=== PATIENT | female | born 1955 | race Caucasian/White ===

== ENCOUNTER 2020-03-16 12:50 | Emergency (ER) | payer MEDICARE, OTHER ==
[~2020-03-16] VITALS: Ht 172.7 cm; Wt 54.4 kg
[2020-03-16 12:56] VITALS: BP_SYST 136
--- NOTE | 2020-03-16 12:56 | NUR ---
Patient to ER bed 02 to gown for evaluation. Side rails up.
--- NOTE | 2020-03-16 13:20 | NUR ---
ER at bedside examining patient.
--- NOTE | 2020-03-16 13:30 | NUR ---
Pt came to ER for nausea vomiting x5 days, also complains of chronic back pain. Pt resting in [facility], compliant
[2020-03-16] MEDS: MORPHINE 4 MG/ML INJ. SYRINGE IVP ONE (13:54)
[2020-03-16] MEDS: ONDANSETRON HCL 4 MG/2 ML VIAL IVP ONE (13:55)
--- NOTE | 2020-03-16 14:20 | NUR ---
Spoke with pt to give update on status. waiting outside available for information.
[2020-03-16 15:02] LABS: BASOPHILS % (AUTO) 0.4 % (0.0-2.0); EOSINOPHILS % (AUTO) 0.3 % (0.0-4.0); HEMATOCRIT 44.9 % (36-48); HEMOGLOBIN 15.4 g/dL (12.0-16.0); LYMPHOCYTES # (AUTO) 1.3 K/uL (1.0-5.5); LYMPHOCYTES % (AUTO) 22.7 % (20.5-51.5); MEAN CORPUSCULAR HEMOGLOBIN 33 pg (27-31); MEAN CORPUSCULAR HGB CONC 34 % (32-36); MEAN CORPUSCULAR VOLUME 97 fL (79.0-98.0); MONOCYTES # (AUTO) 0.5 K/uL (0.0-1.0); MONOCYTES % (AUTO) 8.9 % (1.7-9.3); NEUTROPHILS % (AUTO) 67.7 % (40.0-70.0); PLATELET COUNT (AUTO) 357 K/uL (130-430); RED BLOOD CELL COUNT(AUTO) 4.63 MIL/uL (4.2-6.2); RED CELL DISTRIBUTION WIDTH 13.3 % (9.0-15.0); WHITE BLOOD COUNT (AUTO) 5.9 K/uL (4.8-10.8)
--- NOTE | 2020-03-16 15:15 | NUR ---
Pt asleep in [facility] at this time, VSS
[2020-03-16 15:16] LABS: ANION GAP 10 (5-15); CALCIUM 8.6 mg/dL (8.4-11.0); CHLORIDE 89 mmol/L (98-107); CREATININE 0.57 mg/dL (0.55-1.30); GLUCOSE 112 mg/dL (70-99); POTASSIUM 3.1 mmol/L (3.5-5.1); SODIUM SERUM 123 mmol/L (136-145); UREA NITROGEN, BLOOD 23 mg/dL (8-21)
[2020-03-16 15:23] LABS: ALANINE AMINOTRANSFERASE 19 U/L (12-78); TOTAL BILIRUBIN 1.4 mg/dL (0.0-1.0)
[2020-03-16 15:32] LABS: GFR AFRICAN AMERICAN 136 mL/min (>90)
[2020-03-16 15:52] VITALS: BP_SYST 140
--- NOTE | 2020-03-16 15:53 | NUR ---
Patient given written and verbal discharge instructions and verbalizes understanding. ER MD discussed with patient the results and treatment provided. Patient in stable condition. ID arm band removed. IV catheter removed intact and dressing applied, no active bleeding. Rx of [place] given. Patient educated on pain management and to follow up with PMD. Pain Scale 0/10. Opportunity for questions provided and answered. Medication side effect fact sheet provided.
[2020-03-16 16:30] LABS: ALBUMIN 4.2 g/dL (3.4-4.8)
[2020-03-16 16:53] LABS: ASPARTATE AMINOTRANSFERASE < 5 U/L (10-37)
== END 2020-03-16 15:53 | disposition home or self-care (01) ==
LOC: SED 12:50
DX: M54.9 Dorsalgia, unspecified (principal); R10.84 Generalized abdominal pain; R42 Dizziness and giddiness
CPT/HCPCS: 36415; 70450; 71045; 80053; 82550; 84484; 85025; 93005; 96374; 96375; 99285; J2270; J2405

== ENCOUNTER 2020-08-19 11:36 | Emergency (ER) | payer MEDICARE ==
[~2020-08-19] VITALS: Ht 162.6 cm; Wt 67.1 kg
[2020-08-19 11:38] VITALS: BP_SYST 167
[2020-08-19] MEDS ORDERED: LORazepam 2 MG/ML VIAL ONE (11:45)
[2020-08-19] MEDS ORDERED: NACL 0.9% 1,000 ML IV ONE (12:00)
[2020-08-19 12:08] LABS: BASOPHILS % (AUTO) 0.8 % (0.0-2.0); EOSINOPHILS # (AUTO) 0.2 K/uL (0.0-0.4); HEMATOCRIT 38.3 % (36-48); HEMOGLOBIN 13.4 g/dL (12.0-16.0); MEAN CORPUSCULAR HEMOGLOBIN 36 pg (27-31); MEAN CORPUSCULAR HGB CONC 35 % (32-36); MEAN CORPUSCULAR VOLUME 103 fL (79.0-98.0); MONOCYTES # (AUTO) 0.3 K/uL (0.0-1.0); MONOCYTES % (AUTO) 5.2 % (1.7-9.3); NEUTROPHILS # (AUTO) 4.5 K/uL (1.8-7.7); PLATELET COUNT (AUTO) 233 K/uL (130-430); RED BLOOD CELL COUNT(AUTO) 3.72 MIL/uL (4.2-6.2)
[2020-08-19] MEDS ORDERED: LORazepam 2 MG/ML VIAL IVP ONE (12:15)
[2020-08-19 12:20] LABS: ANION GAP 10 (5-15); CALCIUM 8.4 mg/dL (8.4-11.0); CHLORIDE 94 mmol/L (98-107); CREATININE 0.71 mg/dL (0.55-1.30); GLUCOSE 147 mg/dL (70-99); POTASSIUM 3.9 mmol/L (3.5-5.1); SODIUM SERUM 131 mmol/L (136-145); UREA NITROGEN, BLOOD 7 mg/dL (8-21)
[2020-08-19 12:24] LABS: GFR AFRICAN AMERICAN 106 mL/min (>90)
[2020-08-19 12:26] LABS: ALANINE AMINOTRANSFERASE 25 U/L (12-78); ALBUMIN 4.1 g/dL (3.4-4.8); ASPARTATE AMINOTRANSFERASE 18 U/L (10-37); TOTAL BILIRUBIN 0.7 mg/dL (0.0-1.0)
[2020-08-19 12:27] LABS: ACETAMINOPHEN < 1 ug/mL (1-30); ALCOHOL, BLOOD < 3 mg/dL (<10)
[2020-08-19 12:33] LABS: BARBITURATE, URINE NEGATIVE (NEG <=200); BENZODIAZEPINE, URINE NEGATIVE (NEG <=150); CANNABINOID, URINE NEGATIVE (NEG <=50); COCAINE, URINE NEGATIVE (NEG <=150); METHAMPHETAMINES SCREEN,URINE NEGATIVE (NEG <=500); OPIATE, URINE NEGATIVE (NEG <=100); PHENCYCLIDINE SCREEN,URINE NEGATIVE (NEG <=25); UR TRICYCLIC ANTIDEPRESSANTS NEGATIVE (NEG <=300); URINE AMPHETAMINE NEGATIVE (NEG <=500); URINE METHADONE NEGATIVE (NEG <=200); URINE OXYCODONE SCREEN NEGATIVE (NEG <=100); URINE PROPOXYPHENE SCREEN NEGATIVE (NEG <=300)
[2020-08-19 16:24] VITALS: BP_SYST 167
== END 2020-08-19 16:25 | disposition other institution (70) ==
LOC: SED 11:36
DX: T40.421A Poisoning by tramadol, accidental (unintentional), initial encounter (principal); R56.9 Unspecified convulsions; Z20.822 Contact with and (suspected) exposure to COVID-19; Y92.89 Other specified places as the place of occurrence of the external cause
CPT/HCPCS: 36415; 70450; 76376; 80053; 80307; 83930; 85025; 87426; 93005; 96361; 96374; 99285; G0480; G0481; G0482; J2060; J7030

== ENCOUNTER 2021-08-10 18:29 | Inpatient (IN) | payer MEDICARE, SELFPAY ==
[~2021-08-10] VITALS: Ht 195.6 cm; Wt 70.9 kg
[2021-08-10 18:30] VITALS: BP_SYST 137
[2021-08-10] MEDS ORDERED: levETIRAcetam 2,000 MG in NS 85 ML IV ONE (18:45)
[2021-08-10] MEDS ORDERED: NACL 0.9% 1,000 ML IV ONE (18:45)
[2021-08-10 18:59] LABS: PLATELET COUNT (AUTO) 280 K/uL (130-430)
[2021-08-10 19:04] LABS: BASOPHILS % (AUTO) 0.2 % (0.0-2.0); EOSINOPHILS % (AUTO) 0.2 % (0.0-4.0); HEMATOCRIT 41.4 % (36-48); HEMOGLOBIN 14.3 g/dL (12.0-16.0); LYMPHOCYTES # (AUTO) 0.5 K/uL (1.0-5.5); LYMPHOCYTES % (AUTO) 5.9 % (20.5-51.5); MEAN CORPUSCULAR HEMOGLOBIN 36 pg (27-31); MEAN CORPUSCULAR HGB CONC 35 % (32-36); MEAN CORPUSCULAR VOLUME 104 fL (79.0-98.0); MONOCYTES # (AUTO) 0.4 K/uL (0.0-1.0); MONOCYTES % (AUTO) 4.4 % (1.7-9.3); NEUTROPHILS # (AUTO) 7.2 K/uL (1.8-7.7); NEUTROPHILS % (AUTO) 89.3 % (40.0-70.0); RED BLOOD CELL COUNT(AUTO) 3.98 MIL/uL (4.2-6.2); RED CELL DISTRIBUTION WIDTH 13.3 % (9.0-15.0); WHITE BLOOD COUNT (AUTO) 8.1 K/uL (4.8-10.8)
[2021-08-10 19:06] LABS: ANION GAP 15 (5-15); CALCIUM 9.3 mg/dL (8.4-11.0); CHLORIDE 90 mmol/L (98-107); CREATININE 0.71 mg/dL (0.55-1.30); GLUCOSE 186 mg/dL (70-99); SODIUM SERUM 128 mmol/L (136-145); UREA NITROGEN, BLOOD 13 mg/dL (8-21)
[2021-08-10 19:18] LABS: GFR AFRICAN AMERICAN 106 mL/min (>90); POTASSIUM 2.9 mmol/L (3.5-5.1)
[2021-08-10 19:21] LABS: TOTAL BILIRUBIN 0.4 mg/dL (0.0-1.0)
[2021-08-10 19:22] LABS: ALANINE AMINOTRANSFERASE 36 U/L (12-78); ALBUMIN 4.3 g/dL (3.4-4.8); ALCOHOL, BLOOD < 3 mg/dL (<10); ASPARTATE AMINOTRANSFERASE 34 U/L (10-37)
[2021-08-10] MEDS ORDERED: LORazepam 2 MG/ML VIAL ONE (19:24)
[2021-08-10] MEDS ORDERED: LORazepam 2 MG/ML VIAL IVP ONE (19:30)
[2021-08-10] MEDS: KCL 10 mEq in D5/0.45NS 1000mL 1,000 ML IV SCH (21:03)
[2021-08-11] VITALS (13 sets, daily range): BP systolic 128–169
[2021-08-11] MEDS ORDERED: NACL 0.9% 1,000 ML IV ONE (03:30)
[2021-08-11] MEDS ORDERED: AZITHROMYCIN 500 MG in NS 250 ML IV ONE (03:30)
[2021-08-11] MEDS ORDERED: cefTRIAXone 1 GM in D5W 50 ML IV ONE (03:30)
[2021-08-11] MEDS ORDERED: cefTRIAXone 1 GM VIAL ONE (03:34)
[2021-08-11 04:02] LABS: BILIRUBIN,URINE NEGATIVE (NEGATIVE); CLARITY/URINE CLEAR (CLEAR); COLOR,URINE YELLOW (YELLOW); GLUCOSE,URINE NEGATIVE (NEGATIVE); KETONES,URINE NEGATIVE (NEGATIVE); LEUKOCYTE ESTERASE ,URINE NEGATIVE (NEGATIVE); NITRITE, URINE NEGATIVE (NEGATIVE); PROTEIN URINE NEGATIVE (NEGATIVE); UROBILINOGEN,URINE 0.2 (0.2-1.0)
[2021-08-11 04:03] LABS: BLOOD, URINE TRACE (NEGATIVE)
[2021-08-11 04:13] LABS: BARBITURATE, URINE NEGATIVE (NEG <=200); BENZODIAZEPINE, URINE POSITIVE (NEG <=150); CANNABINOID, URINE NEGATIVE (NEG <=50); COCAINE, URINE NEGATIVE (NEG <=150); METHAMPHETAMINES SCREEN,URINE NEGATIVE (NEG <=500); OPIATE, URINE NEGATIVE (NEG <=100); PHENCYCLIDINE SCREEN,URINE NEGATIVE (NEG <=25); UR TRICYCLIC ANTIDEPRESSANTS POSITIVE (NEG <=300); URINE AMPHETAMINE NEGATIVE (NEG <=500); URINE METHADONE NEGATIVE (NEG <=200); URINE OXYCODONE SCREEN NEGATIVE (NEG <=100); URINE PROPOXYPHENE SCREEN NEGATIVE (NEG <=300)
[2021-08-11] MEDS ORDERED: D5/0.45 NS 1,000 ML IV SCH (04:45)
[2021-08-11] MEDS ORDERED: LORazepam 2 MG/ML VIAL IVP PRN (04:45)
[2021-08-11] MEDS ORDERED: AZITHROMYCIN 500 MG/VIAL (ZITHROMAX) IV ONE (04:46)
[2021-08-11] MEDS ORDERED: LEVE250T2 PO (05:00)
[2021-08-11] MEDS ORDERED: TRAZ-250 PO (05:00)
[2021-08-11] MEDS ORDERED: ATEN50TA PO (05:00)
[2021-08-11] MEDS ORDERED: TRAM50TA PO (05:00)
[2021-08-11] MEDS ORDERED: CEL20 PO (05:00)
[2021-08-11 05:04] LABS: BACTERIA,URINE FEW /HPF (None Seen); MUCUS,URINE 1+ /LPF (None Seen); WBC,URINE 0-3 /HPF (0-3)
[2021-08-11] MEDS: KCL 10 mEq in D5/0.45NS 1000mL 1,000 ML IV SCH (06:15)
[2021-08-11] MEDS: levETIRAcetam 500 MG IV PREMIX 100 ML IV SCH ×2 (08:51→21:04)
[2021-08-11 09:23] LABS: CALCIUM 8.2 mg/dL (8.4-11.0); CREATININE 0.46 mg/dL (0.55-1.30)
[2021-08-11 09:26] LABS: POTASSIUM 2.9 mmol/L (3.5-5.1)
[2021-08-11] MEDS ORDERED: KCL 40 mEq in 100 mL (PREMIX) 100 ML IV ONE (09:45)
[2021-08-11] MEDS ORDERED: ATENOLOL 50 MG TABLET (TENORMIN) PO ONE (10:00)
[2021-08-11] MEDS: cefTRIAXone 1 GM IVPB PREMIX 50 ML IV SCH (10:39)
[2021-08-11] MEDS: AZITHROMYCIN 500 MG in NS 250 ML IV SCH (10:58)
[2021-08-11] MEDS: POTASSIUM CHLORIDE 20 mEq in 100 mL (PREMIX) 100 ML x 2 doses IV SCH ×2 (10:58→13:07)
[2021-08-11] MEDS: KCL 20 mEq in D5NS 1000 mL 1,000 ML IV SCH (15:15)
[2021-08-11] MEDS ORDERED: KETOROLAC TROMETHAMINE 15 MG VIAL ONE (18:00)
[2021-08-11] MEDS ORDERED: hydrALAZINE HCL 20 MG/ML VIAL IVP PRN (18:00)
[2021-08-11] MEDS: KETOROLAC TROMETHAMINE 15 MG VIAL IVP PRN (18:24)
[2021-08-11] MEDS: ENOXAPARIN SODIUM 40 MG/0.4 ML SYRINGE SUBCUT SCH (21:14)
[2021-08-12] VITALS (16 sets, daily range): BP systolic 132–165
[2021-08-12] MEDS: KCL 20 mEq in D5NS 1000 mL 1,000 ML IV SCH ×3 (05:47→20:00)
[2021-08-12 06:35] LABS: CALCIUM 8.3 mg/dL (8.4-11.0); CREATININE 0.53 mg/dL (0.55-1.30)
[2021-08-12 06:40] LABS: BASOPHILS % (AUTO) 0.2 % (0.0-2.0); EOSINOPHILS # (AUTO) 0.1 K/uL (0.0-0.4); EOSINOPHILS % (AUTO) 1.5 % (0.0-4.0); HEMATOCRIT 37.2 % (36-48); HEMOGLOBIN 12.8 g/dL (12.0-16.0); LYMPHOCYTES # (AUTO) 0.8 K/uL (1.0-5.5); LYMPHOCYTES % (AUTO) 15.4 % (20.5-51.5); MEAN CORPUSCULAR HEMOGLOBIN 36 pg (27-31); MEAN CORPUSCULAR HGB CONC 34 % (32-36); MEAN CORPUSCULAR VOLUME 104 fL (79.0-98.0); MONOCYTES # (AUTO) 0.2 K/uL (0.0-1.0); MONOCYTES % (AUTO) 4.8 % (1.7-9.3); NEUTROPHILS # (AUTO) 3.9 K/uL (1.8-7.7); NEUTROPHILS % (AUTO) 78.1 % (40.0-70.0); PLATELET COUNT (AUTO) 203 K/uL (130-430); RED BLOOD CELL COUNT(AUTO) 3.58 MIL/uL (4.2-6.2); RED CELL DISTRIBUTION WIDTH 12.8 % (9.0-15.0)
[2021-08-12] MEDS: KETOROLAC TROMETHAMINE 15 MG VIAL IVP PRN ×3 (08:36→20:58)
[2021-08-12] MEDS: levETIRAcetam 500 MG IV PREMIX 100 ML IV SCH ×2 (09:55→20:54)
[2021-08-12] MEDS: cefTRIAXone 1 GM IVPB PREMIX 50 ML IV SCH (09:56)
[2021-08-12] MEDS: ATENOLOL 50 MG TABLET (TENORMIN) PO SCH (09:56)
[2021-08-12] MEDS: AZITHROMYCIN 500 MG in NS 250 ML IV SCH (11:13)
[2021-08-12] MEDS ORDERED: POTASSIUM CHLORIDE 20 MEQ TAB.PRT.SR PO ONE ×2 (11:30→15:30)
[2021-08-12] MEDS ORDERED: POTASSIUM CHLORIDE 8 MEQ TABLET.SA PO ONE (15:15)
[2021-08-12] MEDS: ENOXAPARIN SODIUM 40 MG/0.4 ML SYRINGE SUBCUT SCH (20:57)
[2021-08-13] VITALS (17 sets, daily range): BP systolic 141–177
[2021-08-13] MEDS: KETOROLAC TROMETHAMINE 15 MG VIAL IVP PRN ×2 (02:35→08:09)
[2021-08-13 06:55] LABS: CALCIUM 8.7 mg/dL (8.4-11.0); CREATININE 0.46 mg/dL (0.55-1.30); PHOSPHORUS 2.3 mg/dL (2.7-4.5); POTASSIUM 3.9 mmol/L (3.5-5.1)
[2021-08-13] MEDS: KCL 20 mEq in D5NS 1000 mL 1,000 ML IV SCH (08:06)
[2021-08-13] MEDS: cefTRIAXone 1 GM IVPB PREMIX 50 ML IV SCH (08:07)
[2021-08-13] MEDS: ATENOLOL 50 MG TABLET (TENORMIN) PO SCH (08:08)
[2021-08-13] MEDS: levETIRAcetam 500 MG IV PREMIX 100 ML IV SCH (08:08)
[2021-08-13] MEDS: AZITHROMYCIN 500 MG in NS 250 ML IV SCH (10:03)
[2021-08-13] MEDS ORDERED: DIVALPROEX SODIUM 500 MG TABLET( DEPAKOTE) PO ONE (12:00)
[2021-08-13] MEDS ORDERED: MAGNESIUM SULFATE 4 GM in D5W 250 ML IV ONE (14:30)
[2021-08-13] MEDS ORDERED: DIVA500T4 PO (16:58)
[2021-08-13] MEDS ORDERED: DIVA-74 PO (17:00)
[2021-08-13] MEDS ORDERED: DIVALPROEX SODIUM 500 MG TABLET( DEPAKOTE) PO SCH (21:00)
== END 2021-08-13 17:40 | disposition home or self-care (01) | DRG 100 ==
LOC: SED 18:29 → SIC 08-11 04:41
PROVIDERS: ADMIT Family Medicine; ATTEND Family Medicine
DX: G40.901 Epilepsy, unspecified, not intractable, with status epilepticus (principal); J18.9 Pneumonia, unspecified organism; G93.41 Metabolic encephalopathy; E87.1 Hypo-osmolality and hyponatremia; F32.A Depression, unspecified; Z20.822 Contact with and (suspected) exposure to COVID-19; E87.6 Hypokalemia; G89.29 Other chronic pain; M54.9 Dorsalgia, unspecified; I10 Essential (primary) hypertension; Z79.899 Other long term (current) drug therapy; Z88.8 Allergy status to other drugs, medicaments and biological substances
CPT/HCPCS: 36415; 70450-TC; 71045; 76376; 80048; 80053; 80307; 81000; 82542; 83605; 83735; 84100; 84484; 85025; 87040; 87081; 96361; 96374; 96375; 99285; G0482; J0456; J0696; J1650; J1885; J1953; J2060; J3475; J3480; J7050; J7060

== ENCOUNTER 2021-11-07 17:00 | Emergency (ER) | payer MEDICARE ==
[~2021-11-07] VITALS: Ht 170.2 cm; Wt 63.5 kg
[~2021-11-07 17:00] MED LIST: ATEN50TA PO; CEFAZOLIN 2 GM IVPB PREMIX 50 ML IV ONE; CEL20 PO; DESFLURANE 15 MIN GAS INH ONE; DEXAMETHASONE SOD PHOSPHATE 4 MG/ML VIAL ONE; DIVA-74 PO; HYDROmorphone 2 MG/ML VIAL ONE; KETOROLAC TROMETHAMINE 30 MG VIAL ONE; LR 1,000 ML IV.SOLN IV ONE; NS IRRIG SOLN 1000 ML IR ONE; ONDANSETRON HCL 4 MG/2 ML VIAL ONE; PHENYLEPHRINE HCL 10 MG/ML VIAL (NEOSYNEPHRINE) ONE; PROPOFOL 200MG/ 20ML VIAL (DIPRIVAN) IV ONE; TRAM50TA PO; TRAZ-250 PO; fentaNYL CITRATE/PF 100 MCG/2 ML AMP ONE
[2021-11-07] MEDS ORDERED: LORazepam 2 MG/ML VIAL ONE (17:19)
[2021-11-07 17:34] LABS: BASOPHILS # (AUTO) 0.2 K/uL (0.0-0.2); BASOPHILS % (AUTO) 2.8 % (0.0-2.0); EOSINOPHILS # (AUTO) 0.1 K/uL (0.0-0.4); EOSINOPHILS % (AUTO) 1.1 % (0.0-4.0); HEMATOCRIT 36.7 % (36-48); HEMOGLOBIN 12.6 g/dL (12.0-16.0); LYMPHOCYTES # (AUTO) 0.3 K/uL (1.0-5.5); LYMPHOCYTES % (AUTO) 5.6 % (20.5-51.5); MEAN CORPUSCULAR HEMOGLOBIN 39 pg (27-31); MEAN CORPUSCULAR HGB CONC 34 % (32-36); MEAN CORPUSCULAR VOLUME 113 fL (79.0-98.0); MONOCYTES # (AUTO) 0.1 K/uL (0.0-1.0); MONOCYTES % (AUTO) 2.1 % (1.7-9.3); NEUTROPHILS # (AUTO) 4.7 K/uL (1.8-7.7); NEUTROPHILS % (AUTO) 88.4 % (40.0-70.0); PLATELET COUNT (AUTO) 299 K/uL (130-430); RED BLOOD CELL COUNT(AUTO) 3.26 MIL/uL (4.2-6.2); WHITE BLOOD COUNT (AUTO) 5.4 K/uL (4.8-10.8)
[2021-11-07] MEDS ORDERED: HYDROcodone/ACETAMIN 5-325 MG TAB (NORCO/ VICODIN) PO ONE (18:00)
[2021-11-07] MEDS ORDERED: LORazepam 2 MG/ML VIAL IM ONE (18:00)
[2021-11-07] MEDS ORDERED: DIVALPROEX SODIUM 250 MG TABLET(DEPAKOTE) PO ONE (18:00)
[2021-11-07 18:01] LABS: ANION GAP 11 (5-15); CHLORIDE 91 mmol/L (98-107); CREATININE 0.83 mg/dL (0.55-1.30); GLUCOSE 128 mg/dL (70-99); POTASSIUM 4.4 mmol/L (3.5-5.1); SODIUM SERUM 129 mmol/L (136-145); UREA NITROGEN, BLOOD 14 mg/dL (8-21)
[2021-11-07 18:05] LABS: GFR AFRICAN AMERICAN 88 mL/min (>90)
[2021-11-07 18:07] LABS: ALANINE AMINOTRANSFERASE 20 U/L (12-78); ASPARTATE AMINOTRANSFERASE 19 U/L (10-37); TOTAL BILIRUBIN 0.5 mg/dL (0.0-1.0)
[2021-11-07 18:25] LABS: CARBAMAZEPINE (TEGRETOL) < 0 ug/mL (4-12)
[2021-11-07 19:07] VITALS: BP_SYST 125
== END 2021-11-07 19:07 | disposition home or self-care (01) ==
LOC: SED 17:00
DX: R56.9 Unspecified convulsions (principal); Z88.8 Allergy status to other drugs, medicaments and biological substances; Z79.899 Other long term (current) drug therapy
CPT/HCPCS: 36415; 80053; 80156; 83605; 85025; 96372; 99283; J0690; J1100; J1170; J1885; J2060; J2370; J2405; J2704; J3010; J7120

== ENCOUNTER 2023-08-01 10:38 | Inpatient (IN) | payer MEDICARE ==
[~2023-08-01] VITALS: Ht 167.6 cm; Wt 58.7 kg
[2023-08-01] VITALS (11 sets, daily range): BP systolic 72–157; PULSE 68–98; RESP 16–33; TEMP 97.7–98.6; O2SAT 94–99
[~2023-08-01 10:38] MED LIST changes: -CEFAZOLIN 2 GM IVPB PREMIX 50 ML IV ONE; -DESFLURANE 15 MIN GAS INH ONE; -DEXAMETHASONE SOD PHOSPHATE 4 MG/ML VIAL ONE; -HYDROmorphone 2 MG/ML VIAL ONE; -KETOROLAC TROMETHAMINE 30 MG VIAL ONE; -LR 1,000 ML IV.SOLN IV ONE; -NS IRRIG SOLN 1000 ML IR ONE; -ONDANSETRON HCL 4 MG/2 ML VIAL ONE; -PHENYLEPHRINE HCL 10 MG/ML VIAL (NEOSYNEPHRINE) ONE; -PROPOFOL 200MG/ 20ML VIAL (DIPRIVAN) IV ONE; -fentaNYL CITRATE/PF 100 MCG/2 ML AMP ONE
[2023-08-01 11:40] LABS: EOSINOPHILS % (AUTO) 0.1 % (0.0-4.0); HEMATOCRIT 27.6 % (36-48); HEMOGLOBIN 8.7 g/dL (12.0-16.0); LYMPHOCYTES # (AUTO) 0.5 K/uL (1.0-5.5); LYMPHOCYTES % (AUTO) 4.8 % (20.5-51.5); MEAN CORPUSCULAR HEMOGLOBIN 26 pg (27-31); MEAN CORPUSCULAR HGB CONC 31 % (32-36); MEAN CORPUSCULAR VOLUME 82 fL (79.0-98.0); MONOCYTES # (AUTO) 1.2 K/uL (0.0-1.0); MONOCYTES % (AUTO) 10.3 % (1.7-9.3); NEUTROPHILS # (AUTO) 9.5 K/uL (1.8-7.7); NEUTROPHILS % (AUTO) 84.8 % (40.0-70.0); PLATELET COUNT (AUTO) 396 K/uL (130-430); RED BLOOD CELL COUNT(AUTO) 3.39 MIL/uL (4.2-6.2); WHITE BLOOD COUNT (AUTO) 11.2 K/uL (4.8-10.8)
[2023-08-01 11:46] LABS: ANION GAP 25 (5-15); CARBON DIOXIDE 22 mmol/L (23-29); CHLORIDE 99 mmol/L (98-107); CREATININE 3.36 mg/dL (0.55-1.30); GFR AFRICAN AMERICAN 17 mL/min (>90); GFR NON AFRICAN-AMERICAN 14 mL/min (>90); GLUCOSE 116 mg/dL (74-106); SODIUM SERUM 146 mmol/L (136-145); UREA NITROGEN, BLOOD 44 mg/dL (8-21)
[2023-08-01] MEDS: NACL 0.9% 1,000 ML IV ONE ×3 (11:46→17:57)
[2023-08-01 11:58] LABS: ALANINE AMINOTRANSFERASE 21 U/L (12-78); ALBUMIN 2.8 g/dL (3.4-4.8); ASPARTATE AMINOTRANSFERASE 16 U/L (10-37); BILIRUBIN,DIRECT 0.1 mg/dL (0.0-0.3); SALICYLATE 2 mg/dL (3-30); TOTAL BILIRUBIN 0.3 mg/dL (0.0-1.0); TOTAL PROTEIN, SERUM 6.4 g/dL (6.4-8.3)
[2023-08-01 11:59] LABS: ACETAMINOPHEN < 1 ug/mL (1-30); ALCOHOL, BLOOD < 3 mg/dL (<10); VALPROIC ACID < 3 ug/mL (50-100)
[2023-08-01 12:29] LABS: ABG O2 SAT% ESTIMATE 95.5 % (94.0-100.0); BLOOD GAS BASE EXCESS -2.9 mmol/L (-3.0-3.0); BLOOD GAS HCO3 21.2 mmol/L (21.0-27.0); BLOOD GAS PCO2 35.2 mmHg (35.0-45.0); BLOOD GAS PH 7.398 (7.350-7.450); BLOOD GAS PO2 76.9 mmHg (75.0-100.0)
[2023-08-01 12:33] LABS: ALLEN'S TEST POSITIVE (P)
[2023-08-01 12:42] LABS: BILIRUBIN,URINE NEGATIVE (NEGATIVE); BLOOD, URINE NEGATIVE (NEGATIVE); CLARITY/URINE CLEAR (CLEAR); COLOR,URINE YELLOW (YELLOW); GLUCOSE,URINE NEGATIVE (NEGATIVE); KETONES,URINE NEGATIVE (NEGATIVE); LEUKOCYTE ESTERASE ,URINE NEGATIVE (NEGATIVE); NITRITE, URINE NEGATIVE (NEGATIVE); PROTEIN URINE TRACE (NEGATIVE); UROBILINOGEN,URINE 0.2 (0.2-1.0)
[2023-08-01 13:00] LABS: BARBITURATE, URINE NEGATIVE (NEG <=200); BENZODIAZEPINE, URINE NEGATIVE (NEG <=150); CANNABINOID, URINE NEGATIVE (NEG <=50); COCAINE, URINE NEGATIVE (NEG <=150); METHAMPHETAMINES SCREEN,URINE NEGATIVE (NEG <=500); OPIATE, URINE NEGATIVE (NEG <=100); PHENCYCLIDINE SCREEN,URINE NEGATIVE (NEG <=25); UR TRICYCLIC ANTIDEPRESSANTS NEGATIVE (NEG <=300); URINE AMPHETAMINE NEGATIVE (NEG <=500); URINE METHADONE NEGATIVE (NEG <=200); URINE OXYCODONE SCREEN NEGATIVE (NEG <=100)
[2023-08-01] MEDS ORDERED: NOREPINEPHRINE BITARTRATE 4 MG in NS 246 ML IV ONE (14:00)
[2023-08-01] MEDS: NOREPINEPHR 4 MG/250 mL NS 250 ML IV ONE (14:15)
[2023-08-01] MEDS ORDERED: DOCUSATE SODIUM 100 MG CAPSULE PO PRN (14:30)
[2023-08-01] MEDS ORDERED: MORPHINE 2 MG/ML INJ. SYRINGE IVP PRN ×2 (14:30)
[2023-08-01] MEDS ORDERED: POTASSIUM CHLORIDE 20 MEQ TABLET.ER PO PRN (14:30)
[2023-08-01] MEDS ORDERED: MUPIROCIN 2% TOPICAL OINTMENT 22 GM NS PRN (14:30)
[2023-08-01] MEDS ORDERED: ONDANSETRON HCL 4 MG/2 ML VIAL IVP PRN (14:30)
[2023-08-01] MEDS: SODIUM BICARBONATE 8.4% JECT 50 MEQ/50 ML SYRINGE IVP ONE (14:39)
[2023-08-01] MEDS ORDERED: ACETAMINOPHEN 500 MG TABLET PO PRN ×3 (14:45)
[2023-08-01] MEDS: LORazepam 2 MG/ML VIAL IVP PRN (15:38)
[2023-08-01] MEDS ORDERED: NOREPINEPHRINE BITARTRATE 4 MG in NS 246 ML IV PRN (19:15)
[2023-08-01] MEDS: DIPHENHYDRAMINE INJ 50 MG/ML VIAL IVP ONE (19:43)
[2023-08-01] MEDS: HALOPERIDOL LACTATE 5 MG/ML VIAL IM PRN (20:32)
[2023-08-01] MEDS: HEPARIN SODIUM,PORCINE 5,000 UNITS/ML VIAL SUBCUT SCH (20:45)
[2023-08-01] MEDS: levETIRAcetam 500 MG IV PREMIX 100 ML IV SCH (20:57)
[2023-08-01] MEDS ORDERED: NOREPINEPHRINE BITARTRATE 16 MG in D5W 234 ML IV PRN ×2 (23:00)
[2023-08-01] MEDS: MAGNESIUM SULFATE 50 ML IV PRN (23:49)
[2023-08-02] VITALS (7 sets, daily range): BP systolic 79–141; PULSE 58–78; RESP 20; TEMP 97.2–97.7; O2SAT 89–98
[2023-08-02] MEDS: NOREPINEPHRINE BITARTRATE 16 MG in D5W 234 ML IV PRN (01:09)
[2023-08-02] MEDS ORDERED: PHENYLEPHRINE HCL 100 MG in NS 240 ML IV PRN (02:15)
[2023-08-02] MEDS: PHENYLEPHRINE HCL 100 MG in NS 240 ML IV PRN (02:55)
[2023-08-02] MEDS: PHENYLEPHRINE HCL 10 MG/ML VIAL (NEOSYNEPHRINE) ONE (02:56)
[2023-08-02] MEDS ORDERED: VASOPRESSIN 40 UNITS in NS 38 ML IV PRN (04:15)
[2023-08-02] MEDS ORDERED: EPINEPHrine HCL 10 MG in NS 240 ML IV PRN (04:15)
[2023-08-02] MEDS: fentaNYL CITRATE/PF 100 MCG/2 ML AMP ONE (04:18)
[2023-08-02] MEDS: VASOPRESSIN 20 UNITS/ML VIAL IV ONE ×2 (04:43→04:45)
[2023-08-02 05:26] LABS: BLOOD GAS PCO2 37.5 mmHg (35.0-45.0); BLOOD GAS PH 7.072 (7.350-7.450); BLOOD GAS PO2 76.9 mmHg (75.0-100.0)
[2023-08-02 05:27] LABS: ABG O2 SAT% ESTIMATE 89.5 % (94.0-100.0); BLOOD GAS BASE EXCESS -18.7 mmol/L (-3.0-3.0); BLOOD GAS HCO3 10.7 mmol/L (21.0-27.0)
[2023-08-02 05:28] LABS: BASOPHILS % (AUTO) 0.2 % (0.0-2.0); EOSINOPHILS % (AUTO) 0.6 % (0.0-4.0); LYMPHOCYTES # (AUTO) 1.3 K/uL (1.0-5.5); LYMPHOCYTES % (AUTO) 44.3 % (20.5-51.5); MEAN CORPUSCULAR HEMOGLOBIN 26 pg (27-31); MEAN CORPUSCULAR HGB CONC 30 % (32-36); MEAN CORPUSCULAR VOLUME 87 fL (79.0-98.0); MONOCYTES # (AUTO) 0.1 K/uL (0.0-1.0); MONOCYTES % (AUTO) 2.3 % (1.7-9.3); NEUTROPHILS # (AUTO) 1.6 K/uL (1.8-7.7); NEUTROPHILS % (AUTO) 52.6 % (40.0-70.0); PLATELET COUNT (AUTO) 129 K/uL (130-430); RED BLOOD CELL COUNT(AUTO) 2.38 MIL/uL (4.2-6.2); RED CELL DISTRIBUTION WIDTH 20.4 % (9.0-15.0)
[2023-08-02] MEDS ORDERED: fentaNYL CITRATE/PF 100 MCG/2 ML AMP IVP ONE (05:30)
[2023-08-02] MEDS: EPINEPHrine HCL 1 MG/ML VIAL ONE (05:33)
[2023-08-02] MEDS ORDERED: EPINEPHrine JECT 0.1 MG/ML SYR ONE (05:46)
[2023-08-02] MEDS ORDERED: SODIUM BICARBONATE 8.4% VIAL 50 MEQ/50 ML VIAL ONE (05:46)
[2023-08-02] MEDS ORDERED: CALCIUM CHLORIDE 1 GM/10 ML DISP.SYRIN (14 mEq Ca++/SYR) ONE (05:46)
[2023-08-02] MEDS ORDERED: DEXTROSE 50% JECT 50 ML DISP.SYRIN ONE (05:46)
[2023-08-02 05:54] LABS: HEMATOCRIT 20.6 % (36-48); HEMOGLOBIN 6.1 g/dL (12.0-16.0)
[2023-08-02 06:07] LABS: ALBUMIN 1.5 g/dL (3.4-4.8); CREATININE 3.05 mg/dL (0.55-1.30); POTASSIUM 4.4 mmol/L (3.5-5.1); TOTAL BILIRUBIN 0.3 mg/dL (0.0-1.0); TOTAL PROTEIN, SERUM 3.4 g/dL (6.4-8.3)
[2023-08-02 06:21] LABS: CALCIUM 5.7 mg/dL (8.4-11.0)
[2023-08-02] MEDS ORDERED: D5W 1,000 ML IV SCH (17:45)
== END 2023-08-02 05:42 | DRG 917 ==
LOC: SED 10:38 → SIC 14:24
PROVIDERS: ADMIT General Practice; ATTEND General Practice
PROC: 5A1935Z Respiratory Ventilation, Less than 24 Consecutive Hours (ICD-10-PCS; principal; 2023-08-02)
PROC: 0BH17EZ Insertion of Endotracheal Airway into Trachea, Via Natural or Artificial Opening (ICD-10-PCS; 2023-08-02)
PROC: 02HV33Z Insertion of Infusion Device into Superior Vena Cava, Percutaneous Approach (ICD-10-PCS; 2023-08-02)
PROC: B548ZZA Ultrasonography of Superior Vena Cava, Guidance (ICD-10-PCS; 2023-08-02)
DX: T43.021A Poisoning by tetracyclic antidepressants, accidental (unintentional), initial encounter (principal); G92.8 Other toxic encephalopathy; N17.9 Acute kidney failure, unspecified; E87.20 Acidosis, unspecified; I24.89 Other forms of acute ischemic heart disease; I10 Essential (primary) hypertension; G40.909 Epilepsy, unspecified, not intractable, without status epilepticus; I95.9 Hypotension, unspecified; Z79.899 Other long term (current) drug therapy; I46.9 Cardiac arrest, cause unspecified; I45.81 Long QT syndrome
CPT/HCPCS: 36415; 36600; 70450-TC; 71045; 76376; 80048; 80053; 80076; 80164; 80307; 81001; 81003; 82550; 82803; 83037; 83605; 83735; 84484; 85025; 92950; 93005; 94002; 99291; G0480; G0481; G0482; J0171; J1200; J1630; J1644; J1953; J2060; J2370; J3010; J3475; J3490; J7050